=== PATIENT | female | born 1935 | race Caucasian/White ===

== ENCOUNTER 2017-02-06 01:00 | Observation (INO) | payer MEDICARE, OTHER ==
[~2017-02-06] VITALS: Ht 162.6 cm; Wt 68.0 kg
--- NOTE | ~2017-02-06 | CR126 ---
[facility] A Service of [facility] & [facility] RADIOLOGY TEXT RESULTS PATIENT: CHELSEY GARZA LOCATION: [place] [address] : [birth year] UNIT #: [id number] AGE: [address]: Vinod Smalls MD SEX: F ORDER DR: [id number] [facility] [address] [place], [place] [address] [id number] I MR#: [id number] Acc #: [id number] NAME: CHELSEY GARZA : 1935 SEX: F STUDY DATE/TIME: 02/06/2017 02:02 UNIT: [facility] ROOM: [facility] STUDY DESCRIPTION: CR Foot Complete Min 3 View Lt Attending Physician: Vinod Smalls M.D. Ordering Physician: Manolo Guerrero M.D. Primary Care Physician: Selvin Chopra M.D. MEDICAL IMAGING REPORT This report is preliminary unless electronic signature is present EXAM Left foot, 02/06 at 02:02 INDICATIONS Foot pain, swelling after a fall Wednesday of this week. FINDINGS Three views of the left foot were obtained. No comparison. The patient is diffusely osteopenic. Evaluation of the toes is limited due to positioning. There is a plantar calcaneal spur. No acute fractures are identified. IMPRESSION No acute fractures are identified. The patient is osteopenic. Evaluation of the toes is somewhat limited due to positioning but no gross toe fractures are seen. Dictated by... Danie Peralta Jr., M.D. THIS IS AN ELECTRONICALLY VERIFIED REPORT Danie Peralta Jr., M.D. at 02/06/2017 8:51 PM MARIA A/mariaa TD: 02/06/2017 12:03 JOB #: [id number] MEDICAL IMAGING REPORT Page 1 of 1 COPY
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
--- NOTE | ~2017-02-06 | EKG ---
PATIENT: CHELSEY GARZA UNIT #: [id number] Ventricular Rate: 90 BPM Atrial Rate: 90 BPM P-R Interval: 150 ms QRS Duration: 82 ms Q-T Interval: 370 ms QTC Calculation(Bezet): 452 ms P [place]: 57 degrees Calculated R [place]: 23 degrees Calculated T [place]: 59 degrees Diagnosis Line: Normal sinus rhythm Diagnosis Line: Nonspecific ST and T wave abnormality Diagnosis Line: Abnormal ECG Diagnosis Line: When compared with ECG of 17-AUG-2013 06:15, Diagnosis Line: No significant change was found Diagnosis Line: Confirmed by KAYLAN JEFF MD ([id number]) on Diagnosis Line: 02/08/2017 8:06:51 PM INTERPRETING MD: CRISTI
[~2017-02-06 01:00] MED LIST: ASPIRIN81 M2 PO; CARDIZEM CD120 MG PO; NAPROSYN500 MG PO; PROAIR HFA8.5 GM INH; SYMBICORT INH
[2017-02-06 02:42] LABS: POC - CKMB 1.9 ng/mL (0.0-7.9); POC - TROPONIN <0.05 ng/mL (<=0.05)
[2017-02-06 02:44] LABS: BASOPHIL# 0.1 X10e3 (0-0.3); BASOPHIL% 0.6 % (0-2.5); EOSINOPHIL# 0.1 X10e3 (0-0.7); EOSINOPHIL% 1.2 % (0.0-7.0); HEMATOCRIT 38.9 % (35.0-45.0); HEMOGLOBIN 12.4 gm/dL (12.0-16.0); LYMPHOCYTE# 1.1 X10e3 (1.0-3.5); LYMPHOCYTE% 12.6 % (17.0-45.0); MEAN CORPUSCULAR HEMOGLOBIN 30.6 PG (28-34); MEAN CORPUSCULAR HGB CONC 31.9 g/dL (30-36); MEAN PLATELET VOLUME 8.5 FL (6.5-11.5); MONOCYTE# 0.9 X10e3 (0-1.0); NEUTROPHIL# 6.3 X10e3 (1.5-7.1); NEUTROPHIL% 74.6 % (40-75); PLATELET COUNT 197 X10e3 (140-420); RED BLOOD COUNT 4.05 X10e (3.90-5.30); RED CELL DISTRIBUTION WIDTH 13.9 % (11.0-15.5); WHITE BLOOD COUNT 8.4 X10e3 (4.0-10.5)
[2017-02-06 02:48] LABS: DIFF IND NO
[2017-02-06 03:12] LABS: ALBUMIN SERUM 3.9 g/dL (3.5-5.0); BILIRUBIN, DIRECT 0.1 mg/dL (0.0-0.2); BILIRUBIN,INDIRECT 0.7 mg/dL (0.0-0.9); BILIRUBIN,TOTAL 0.8 mg/dL (0.2-2.0); BUN/CREATININE RATIO 26.36; CALCIUM SERUM 8.8 mg/dL (8.4-10.2); CREATININE SERUM 1.1 mg/dL (0.6-1.4); GLOM FILT RATE Estimated 46.4 mL/min (>60); PROTEIN TOTAL SERUM 6.8 g/dL (6.0-8.3)
[2017-02-06 04:21] LABS: URINE SOURCE CLEAN CATCH
[2017-02-06 04:26] LABS: URINE APPEARANCE CLEAR; URINE BILIRUBIN NEG (NEG); URINE BLOOD NEG (NEG); URINE COLOR YELLOW; URINE GLUCOSE NEG (NEG); URINE KETONE TRACE (NEG); URINE LEUKOCYTE ESTERASE NEG (NEG); URINE NITRATE NEG (NEG); URINE PH 6.5 (5-8); URINE PROTEIN NEG (NEG); URINE SPECIFIC GRAVITY 1.014 (1.003-1.035)
[2017-02-06 04:33] LABS: CULTURE INDICATED? NO
[2017-02-06 07:38] LABS: GLOM FILT RATE Estimated 52.1 mL/min (>60); POTASSIUM 4.1 mmol/L (3.5-5.1)
[2017-02-06] MEDS ORDERED: DILTIAZEM ER60 MG PO (09:25)
[2017-02-07 03:57] LABS: BUN/CREATININE RATIO 21.11; CALCIUM SERUM 8.4 mg/dL (8.4-10.2); CREATININE SERUM 0.9 mg/dL (0.6-1.4); GLOM FILT RATE Estimated 59.2 mL/min (>60); POTASSIUM 3.7 mmol/L (3.5-5.1)
[2017-02-08] MEDS ORDERED: ACETAMINOPHEN PO (15:29)
[2017-02-08] MEDS ORDERED: MECLIZINE HCL12.5 M2 PO (15:30)
== END 2017-02-08 16:25 | disposition home health service (06) ==
LOC: CED 01:00 → CEDOF 05:06 → CED 05:09 → CEDOF 05:09 → C4C 06:21
PROVIDERS: Emergency Medicine; Internal Medicine; Internal Medicine Endocrinology, Diabetes & Metabolism
DX: I95.9 Hypotension, unspecified (principal); R42 Dizziness and giddiness; I51.7 Cardiomegaly; S22.42XA Multiple fractures of ribs, left side, initial encounter for closed fracture; M85.872 Other specified disorders of bone density and structure, left ankle and foot; F17.200 Nicotine dependence, unspecified, uncomplicated; I10 Essential (primary) hypertension; J44.9 Chronic obstructive pulmonary disease, unspecified; Z79.1 Long term (current) use of non-steroidal anti-inflammatories (NSAID); Z79.899 Other long term (current) drug therapy; Z91.410 Personal history of adult physical and sexual abuse
CPT/HCPCS: 36415; 70450; 71010; 73630; 80048; 80076; 81003; 82550; 82553; 82947; 84443; 84484; 85025; 93005; 94640; 94664; 94760; 96361; 96374; 96375; 96376; 97110; 97116; 97162; 97166; 97530; 97535; 99285; G0378; G8978-GP; G8979-GP; G8987-GO; G8988-GO; J2405